=== PATIENT | female | born 1970 | race Caucasian/White ===

== ENCOUNTER 2018-04-22 12:49 | Emergency (ER) | payer SELFPAY ==
[2018-04-22 12:52] VITALS: BP 138/94; PULSE 91; RESP 18; TEMP 36.3; O2SAT 94; BMI 31.4
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
[2018-04-22] MEDS: DiphenhydrAMINE 50 MG/ML Syringe 25 MG IV (13:57)
[2018-04-22] MEDS: 0.9% Normal Saline 1,000 ML 999 ML IV (13:57)
[2018-04-22] MEDS: proCHLORPERazine 10 MG/2 ML Vial IV (13:58)
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
[2018-04-22 15:10] VITALS: BP 132/82; PULSE 61; RESP 14
== END 2018-04-22 15:12 | disposition home or self-care (01) ==
LOC: ED 14:41
PROVIDERS: Emergency Provider Emergency Medicine
DX: G44.309 Post-traumatic headache, unspecified, not intractable (principal)
CPT/HCPCS: 70450; 72125; 96361; 96374; 96375; 99285; J7030; A4216